=== PATIENT | female | born 1990 | race Caucasian/White ===

== ENCOUNTER 2024-05-14 17:14 | Emergency (ER) | payer OTHER ==
[~2024-05-14] VITALS: Ht 157.5 cm; Wt 84.4 kg
[2024-05-14 17:20] VITALS: BP 114/79; PULSE 90; RESP 18; TEMP 98.1; O2SAT 97
[2024-05-14] MEDS: LIDOCAINE 5% 1 EA PATCH TP ONE (18:01)
[2024-05-14] MEDS: ACETAMINOPHEN EXTRA STRENGTH 500 MG TAB PO ONE (18:02)
[2024-05-14 20:14] VITALS: BP 117/80; PULSE 76; RESP 16; TEMP 98.1; O2SAT 99
== END 2024-05-14 20:14 | disposition home or self-care (01) ==
LOC: MED 17:14
DX: S29.012A Strain of muscle and tendon of back wall of thorax, initial encounter (principal); Z88.6 Allergy status to analgesic agent; V43.52XA Car driver injured in collision with other type car in traffic accident, initial encounter; Y93.89 Activity, other specified; Y92.89 Other specified places as the place of occurrence of the external cause; Y99.8 Other external cause status
CPT/HCPCS: 72072; 99283; Q0092